=== PATIENT | male | born 1960 | race Caucasian/White ===

== ENCOUNTER 2018-08-18 07:34 | Day surgery (SDC) | payer BC ==
[~2018-08-18 07:34] MED LIST: Sodium Chloride 0.9% 10 ML Syringe FLUSH PRN
[2018-08-18] MEDS ORDERED: Propofol 200 MG/20 ML SDV IV ONE (07:35)
[2018-08-18] MEDS ORDERED: Lidocaine 1% PF 2 ML SDV INJECT ONE (07:35)
[2018-08-18] MEDS: Lactated Ringers 1,000 ML IV SCH (08:00)
[2018-08-18] MEDS: Simethicone Drops 40 MG/0.6 ML 30 ML Bottle ONE (09:11)
--- NOTE | 2018-08-18 09:30 | PCM.OPNOTE ---
- General Post-Op/Procedure Note Date of Surgery/Procedure: 08/18/18 Operative Procedure(s): c scope with bx Findings: sigmoid diverticulosis rectal polyp Pre Op Diagnosis: screening. colonoscopy Post-Op Diagnosis: sigmoid diverticulosis. rectal polyp Anesthesia Technique: MAC Primary Surgeon: Ildefonso Smith Anesthesia Provider: Devyn Traylor Pathology: rectal polyp Complications: None Condition: Good Free Text/Narrative:: see dictation
--- NOTE | 2018-08-18 16:18 | OR ---
DATE OF OPERATION: 08/18/2018 SURGEON: Ildefonso Smith MD PROCEDURE PERFORMED: Colonoscopy with cold forceps biopsy. PREOPERATIVE DIAGNOSIS: Colon cancer screening. POSTOPERATIVE DIAGNOSES: Sigmoid diverticulosis and rectal polyp. INDICATIONS FOR PROCEDURE: This is a 57-year-old white male who presents for his initial screening colonoscopy. He was offered and accepted same. DESCRIPTION OF OPERATION: After an excellent IV sedation was administered, digital rectal exam was performed. No marked abnormality was noted. Flexible colonoscope was inserted and advanced to the cecum. Prep was excellent. The following findings were noted. Ascending colon, unremarkable. Transverse colon, unremarkable. Descending colon, unremarkable. Sigmoid, diverticulosis was noted. Rectum, at the proximal rectum, there was a discolored patch, approximately 8 mm in size. It had the appearance of an adenoma. This was biopsied and sent for permanent. The remainder of the rectum and anus was unremarkable. The patient tolerated the procedure and was taken to Recovery in a good condition. Results by letter. /[id number] /SHIV
== END 2018-08-18 10:08 | disposition home or self-care (01) ==
LOC: FB.SDS 07:34
PROVIDERS: ATTEND Surgery
DX: Z12.11 Encounter for screening for malignant neoplasm of colon (principal); K62.1 Rectal polyp; K57.30 Diverticulosis of large intestine without perforation or abscess without bleeding; K21.9 Gastro-esophageal reflux disease without esophagitis; I10 Essential (primary) hypertension; E78.00 Pure hypercholesterolemia, unspecified; G47.33 Obstructive sleep apnea (adult) (pediatric); Z87.891 Personal history of nicotine dependence; Z79.82 Long term (current) use of aspirin; Z79.899 Other long term (current) drug therapy
CPT/HCPCS: 88305; A9270-GY; J2001; J2704; J7120

== ENCOUNTER 2020-01-15 06:15 | Emergency (ER) | payer BC ==
[2020-01-15] MEDS ORDERED: Sodium Chloride 0.9% 10 ML Syringe FLUSH PRN (06:20)
[2020-01-15] MEDS: Nitroglycerin 0.4 MG Tab.SL SL ONE ×2 (06:38→06:45)
[2020-01-15] MEDS ORDERED: Aspirin 81 MG Tab.Chew PO STA (06:42)
[2020-01-15] MEDS ORDERED: Ticagrelor 90 MG Tab PO ONE (06:53)
[2020-01-15] MEDS ORDERED: Heparin Sodium 5,000 Units/ML Vial IVPUSH ONE (06:53)
[2020-01-15] MEDS ORDERED: Sodium Chloride 0.9% 1,000 ML IV SCH (07:00)
--- NOTE | 2020-01-15 07:03 | EDM.PDOC ---
ED HPI GENERAL MEDICAL PROBLEM - General Chief Complaint: Chest Pain Stated Complaint: chest pain Time Seen by Provider: 01/15/20 06:20 Source of Information: Reports: Patient History Limitations: Reports: No Limitations - History of Present Illness INITIAL COMMENTS - FREE TEXT/NARRATIVE: Patient presented to the ED because of sudden onset of chest pain at 0530 just as he was preparing to go to work. The pain is sharp and pressure over the sternal area, 5/10, non-radiating with associated dyspnea but no nausea,vomiting, or diaphoresis. There is no fever, chills,no recent, cough or cold. He never had chest pain before. He has a history of HTN taking metoprolol 100 mg po qday. His mom of AMI at age 58. Chest Pain Score (Numeric/FACES): 5 - Related Data Allergies Allergy/AdvReac Type Severity Reaction Status Date / Time No Known Allergies Allergy Verified 01/15/20 06:24 Home Meds: Home Meds Ascorbate Calcium [Vitamin C] 500 mg PO DAILY 08/17/18 [History] Aspirin 81 mg PO DAILY 08/17/18 [History] Cholecalciferol (Vitamin D3) [Vitamin D3] 1,000 unit PO DAILY 08/17/18 [History] Fish Oil/Rock-3 Fatty Acids [Fish Oil 1,000 MG] 1 each PO DAILY 08/17/18 [History] Glucosam/Chond/Collagen/Hyalur [Glucosamine Chondroitin] 1 each PO DAILY 08/17/18 [History] Metoprolol Succinate [Toprol XL 100mg] 100 mg PO DAILY 08/17/18 [History] Multivitamin [Multivitamins] 1 each PO DAILY 08/17/18 [History] amLODIPine Besylate [Norvasc] 10 mg PO DAILY 08/17/18 [History] Past Medical History HEENT History: Reports: Impaired Vision Cardiovascular History: Reports: Hypertension Respiratory History: Reports: None Gastrointestinal History: Reports: None Genitourinary History: Reports: None 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 Musculoskeletal History: Reports: None Neurological History: Reports: None Psychiatric History: Reports: None Endocrine/Metabolic History: Reports: Obesity/BMI 30+ Hematologic History: Reports: None Immunologic History: Reports: None Oncologic (Cancer) History: Reports: None Dermatologic History: Reports: None - Past Surgical History Head Surgeries/Procedures: Reports: None HEENT Surgical History: Reports: None Cardiovascular Surgical History: Reports: None Respiratory Surgical History: Reports: None GI Surgical History: Reports: None, Colonoscopy Male Surgical History: Reports: None Endocrine Surgical History: Reports: None Neurological Surgical History: Reports: None Musculoskeletal Surgical History: Reports: None Dermatological Surgical History: Reports: None Social & Family History - Tobacco Use Tobacco Use Status *Q: Former Tobacco User Used Tobacco, but Quit: Yes Month/Year Tobacco Last Used: 25 years ago - Caffeine Use Caffeine Use: Reports: Coffee - Recreational Drug Use Recreational Drug Use: No ED ROS GENERAL - Review of Systems Review Of Systems: See Below Constitutional: Reports: No Symptoms HEENT: Reports: No Symptoms Respiratory: Reports: Shortness of Breath Cardiovascular: Reports: Chest Pain Endocrine: Reports: No Symptoms GI/Abdominal: Reports: No Symptoms : Reports: No Symptoms Musculoskeletal: Reports: No Symptoms Skin: Reports: No Symptoms Neurological: Reports: No Symptoms Psychiatric: Reports: No Symptoms Hematologic/Lymphatic: Reports: No Symptoms Immunologic: Reports: No Symptoms ED EXAM, GENERAL - Physical Exam Exam: See Below Exam Limited By: No Limitations General Appearance: Alert, No Apparent Distress Eye Exam: Bilateral Eye: PERRL Nose: Normal Inspection, Normal Mucosa Throat/Mouth: Normal Inspection, Normal Lips, Normal Teeth Head: Atraumatic, Normocephalic Neck: Normal Inspection, Supple, Non-Tender, Full Range of Motion Respiratory/Chest: No Respiratory Distress, Lungs Clear, Normal Breath Sounds Cardiovascular: Normal Peripheral Pulses, Regular Rate, Rhythm, No Edema, No Gallop, No JVD, No Murmur, No Rub GI/Abdominal: Normal Bowel Sounds, Soft, Non-Tender, No Organomegaly Back Exam: Normal Inspection, Full Range of Motion Extremities: Normal Inspection, Normal Range of Motion Neurological: Alert, Oriented, CN II-XII Intact, Normal Cognition Psychiatric: Normal Affect Skin Exam: Warm, Dry Course - Vital Signs Text/Narrative:: Labs/EKG/CXR result was discussed with patient and his daughter EKG-STEMI Brilinta 180 mg po x1 ASA 325 mg po x1 Heparin 4000 U IV x1 Case discussed with Dr Moss Last Recorded V/S: Last Vital Signs Temp 36.6 C 01/15/20 06:15 Pulse 75 01/15/20 06:15 Resp 15 01/15/20 06:15 BP 146/96 H 01/15/20 06:45 Pulse Ox 98 01/15/20 06:15 - Orders/Labs/Meds Orders: Active Orders 24 hr Category Date Time Status EKG Documentation Completion [RC] ASDIRECTED Care 01/15/20 06:44 Active CXR [Chest 1V Frontal] [CR] Stat Exams 01/15/20 06:43 Ordered CBC WITH AUTO DIFF [HEME] Stat Lab 01/15/20 06:25 Received COMPREHENSIVE METABOLIC PN,CMP [CHEM] Stat Lab 01/15/20 06:25 Received INR,PT,PROTHROMBIN TIME [COAG] Stat Lab 01/15/20 06:25 Received PRO B-TYPE NATRIUR PEPT,BNPPRO [CHEM] Stat Lab 01/15/20 06:25 Received PTT,PARTIAL THROMBOPLSTIN TIME [COAG] Stat Lab 01/15/20 06:25 Received TROPONIN I [CHEM] Stat Lab 01/15/20 06:25 Received Sodium Chloride 0.9% [Saline Flush] Med 01/15/20 06:20 Active 10 ml FLUSH ASDIRECTED PRN EKG 12 Lead [EK] Routine Ther 01/15/20 06:43 Ordered Medication Orders Sodium Chloride (Saline Flush) 10 ml FLUSH ASDIRECTED PRN PRN Reason: IV Use Last Admin: 01/15/20 06:20 Dose: 10 ml Documented by: DORIS Meds: Medications Generic Name Dose Route Start Last Admin Trade Name Freq PRN Reason Stop Dose Admin Sodium Chloride 10 ml 01/15/20 06:20 01/15/20 06:20 Saline Flush FLUSH 10 ml ASDIRECTED PRN Administration IV Use Discontinued Medications Generic Name Dose Route Start Last Admin Trade Name Freq PRN Reason Stop Dose Admin Aspirin 324 mg 01/15/20 06:42 01/15/20 06:18 Aspirin PO 01/15/20 06:43 324 mg STAT STA Administration Heparin Sodium (Porcine) 4,000 units 01/15/20 06:53 Heparin Sodium IVPUSH 01/15/20 06:54 ONETIME ONE Nitroglycerin 0.4 mg 01/15/20 06:38 01/15/20 06:45 Nitrostat SL 01/15/20 06:39 0.4 mg ONETIME ONE Administration Ticagrelor 180 mg 01/15/20 06:53 Brilinta PO 01/15/20 06:54 ONETIME ONE Departure - Departure Time of Disposition: 07:05 Disposition: Home, Self-Care 01 Condition: Good Clinical Impression: STEMI (ST elevation myocardial infarction), HTN (hypertension) Sepsis Event Note (ED) - Evaluation Sepsis Screening Result: No Definite Risk - Focused Exam Vital Signs: Vital Signs Temp Pulse Resp BP BP Pulse Ox 01/15/20 06:45 146/96 H 01/15/20 06:38 159/105 H 01/15/20 06:15 36.6 C 75 15 184/114 H 98 - My Orders Last 24 Hours: My Active Orders 01/15/20 06:20 Sodium Chloride 0.9% [Saline Flush] 10 ml FLUSH ASDIRECTED PRN 01/15/20 06:25 CBC WITH AUTO DIFF [HEME] Stat COMPREHENSIVE METABOLIC PN,CMP [CHEM] Stat INR,PT,PROTHROMBIN TIME [COAG] Stat PRO B-TYPE NATRIUR PEPT,BNPPRO [CHEM] Stat PTT,PARTIAL THROMBOPLSTIN TIME [COAG] Stat TROPONIN I [CHEM] Stat 01/15/20 06:43 CXR [Chest 1V Frontal] [CR] Stat EKG 12 Lead [EK] Routine 01/15/20 06:44 EKG Documentation Completion [RC] ASDIRECTED - Assessment/Plan Last 24 Hours: My Active Orders 01/15/20 06:20 Sodium Chloride 0.9% [Saline Flush] 10 ml FLUSH ASDIRECTED PRN 01/15/20 06:25 CBC WITH AUTO DIFF [HEME] Stat COMPREHENSIVE METABOLIC PN,CMP [CHEM] Stat INR,PT,PROTHROMBIN TIME [COAG] Stat PRO B-TYPE NATRIUR PEPT,BNPPRO [CHEM] Stat PTT,PARTIAL THROMBOPLSTIN TIME [COAG] Stat TROPONIN I [CHEM] Stat 01/15/20 06:43 CXR [Chest 1V Frontal] [CR] Stat EKG 12 Lead [EK] Routine 01/15/20 06:44 EKG Documentation Completion [RC] ASDIRECTED
== END 2020-01-15 07:16 ==
LOC: FB.ED 06:15
DX: I21.3 ST elevation (STEMI) myocardial infarction of unspecified site (principal); I10 Essential (primary) hypertension; E66.9 Obesity, unspecified; Z79.82 Long term (current) use of aspirin; Z79.899 Other long term (current) drug therapy; Z87.891 Personal history of nicotine dependence; Z68.33 Body mass index [BMI] 33.0-33.9, adult
CPT/HCPCS: 36415; 71046; 80053; 83880; 84484; 85025; 85610; 85730; 93005; 96374; 99285; 99285-25; A9270-GY; J1644; J7030

== ENCOUNTER 2024-03-14 10:32 | Emergency (ER) | payer OTHER ==
[2024-03-14] MEDS ORDERED: Sodium Chloride 0.9% 10 ML Syringe FLUSH PRN (11:05)
[2024-03-14 11:15] LABS: BASOPHILS PERCENT AUTO 0.5 % (0.3-3.8); EOSINOPHILS ABSOLUTE AUTO 0.2 x10-3/uL (0.0-0.6); EOSINOPHILS PERCENT AUTO 2.9 % (0.1-6.8); HEMATOCRIT 46.4 % (38.3-50.1); HEMOGLOBIN 16.1 g/dL (12.9-17.7); LYMPHOCYTES ABSOLUTE AUTO 1.6 x10-3/uL (0.5-4.5); LYMPHOCYTES PERCENT AUTO 25.1 % (15.8-45.3); MEAN CORPUSCULAR HEMOGLOBIN 32.5 pg (27.0-33.3); MEAN CORPUSCULAR HGB CONC 34.7 g/dL (28.7-35.3); MEAN CORPUSCULAR VOLUME 93.7 fL (80.8-98.7); MEAN PLATELET VOLUME 8.5 fL (6.7-11.0); MONOCYTES ABSOLUTE AUTO 0.6 x10-3/uL (0.0-1.2); MONOCYTES PERCENT AUTO 10.2 % (5.5-15.2); NEUTROPHILS ABSOLUTE AUTO 3.9 x10-3/uL (1.7-6.9); NEUTROPHILS PERCENT AUTO 61.3 % (40.3-71.8); PLATELET COUNT,PLT 178 x10(3)uL (117-477); RED BLOOD CELL COUNT 4.96 x10(6)uL (3.90-5.90); RED CELL DISTRIBUTION WIDTH 12.7 % (12.4-15.0); WHITE BLOOD CELL COUNT,WBC 6.3 x10-3/uL (3.2-10.1)
[2024-03-14] MEDS: Sodium Chloride 0.9% 1,000 ML IV ONE (11:17)
[2024-03-14 11:24] LABS: A/G RATIO 1.3; ALANINE AMINOTRANSFERASE,ALT 61 U/L (12-36); ALBUMIN 4.1 g/dL (3.2-4.6); ALKALINE PHOSPHATASE 59 IU/L (56-112); ASPARTATE AMNIOTRANSFERASE,AST 36 IU/L (5-25); BILIRUBIN TOTAL 0.4 mg/dL (0.1-1.3); BLOOD UREA NITROGEN,BUN 13 mg/dL (7-18); BUN/CREATININE RATIO 14.4 (9-20); CALCIUM 9.2 mg/dL (8.6-10.2); CARBON DIOXIDE,CO2 24 mmol/L (21-32); CREATININE 0.9 mg/dL (0.70-1.30); ESTIMATED GFR 97 mL/min (>60); GLUCOSE RANDOM 118 mg/dL (80-116); PROTEIN TOTAL,TP 7.3 g/dL (6.0-8.0)
[2024-03-14 11:28] LABS: LACTIC ACID 1.5 mmol/L (0.4-2.0)
[2024-03-14 11:33] LABS: CHLORIDE,CL 106 mmol/L (100-110); POTASSIUM,K 4.2 mmol/L (3.5-5.3); SODIUM,NA 143 mmol/L (135-145)
== END 2024-03-14 12:46 | disposition home or self-care (01) ==
LOC: FB.ED 10:32
DX: I11.9 Hypertensive heart disease without heart failure (principal); I25.2 Old myocardial infarction; E66.9 Obesity, unspecified; Z95.5 Presence of coronary angioplasty implant and graft; Z87.891 Personal history of nicotine dependence; Z79.899 Other long term (current) drug therapy; Z79.82 Long term (current) use of aspirin
CPT/HCPCS: 80053; 83605; 84484; 85025; 86140; 93005; 96360; 99284; J7030